=== PATIENT | female | born 1980 | race Caucasian/White ===

== ENCOUNTER 2017-02-12 20:44 | Observation (INO) | payer OTHER ==
[2017-02-12] MEDS ORDERED: Sodium Chloride 0.9% 1,000 ML IV STA (21:24)
[2017-02-12] MEDS ORDERED: HYDROmorphone 0.5 mg/0.5 ml ISec ONE (21:40)
[2017-02-12 21:41] LABS: BASO % 0.3 % (0.0-2.0); EOS # 0.3 K/uL (0.0-0.7); EOS % 3.3 % (0.0-4.0); HEMATOCRIT 35.8 % (34.0-47.0); LYMPH # 2.1 K/uL (1.0-4.3); LYMPH % 21.4 % (20.0-40.0); MEAN CELL VOLUME 88.7 fl (81.0-99.0); MEAN CORPUSCULAR HGB CONC 32.7 g/dL (33.0-37.0); MEAN PLATELET VOLUME 7.1 fl (7.2-11.7); MONO # 0.6 K/uL (0.0-0.8); NEUT # 6.8 K/uL (1.8-7.0); WHITE BLOOD COUNT 9.9 K/uL (4.8-10.8)
[2017-02-12 21:53] LABS: ALB/GLOB RATIO 1.4 (1.0-2.1); ALKALINE PHOSPHATASE 56 U/L (38-126); ALT/SGPT 29 U/L (9-52); AST/SGOT 30 U/L (14-36); BILIRUBIN,TOTAL 0.4 mg/dl (0.2-1.3); BLOOD UREA NITROGEN 14 mg/dl (7-17); CALCIUM 8.9 mg/dL (8.4-10.2); CARBON DIOXIDE 21 mmol/L (22-30); CHLORIDE 105 mmol/L (98-107); GFR AFRICAN-AMERICAN > 60; GLUCOSE,RANDOM 123 mg/dL (65-105); POTASSIUM 3.9 MMOL/L (3.6-5.0); SODIUM 138 mmol/l (132-148); TOTAL PROTEIN 8.2 G/DL (6.3-8.2)
--- NOTE | 2017-02-12 21:59 | ED PDOC ---
HPI: Female Pain Time Seen by Provider: 02/12/17 21:08 Chief Complaint (Nursing): Chest Pain Chief Complaint (Provider): Pelvic Pain History Per: Patient History/Exam Limitations: no limitations Onset/Duration Of Symptoms: Hrs (x12) Current Symptoms Are (Timing): Still Present Additional Complaint(s): Josefa Fernandes is a 36 year old female that presents to the ED with a chief complaint of pelvic pain that began suddenly this morning. Patient reports that her pain began while having intercourse, and describes it as a "stitch feeling" in her abdomen. She reports that the pain is worse when she is lying down flat, or when she is using her abdominal muscles when attempting to get up to a seated position after lying down. Patient states that her pain had been getting progressively worse throughout the day, and that just prior to arrival to ED she was getting up from her couch when the pain became so severe it radiated all the way up to her chest with associated shortness of breath. She denies any nausea, vomiting, diarrhea, bleeding, or urinary symptoms. Of Note: Patient had an egg retrieval procedure with Dr. Franco in [facility] five days ago. Both on the day of her procedure and the day after, she states that she had some pelvic cramping, but that all of it resolved. Past Medical History Reviewed: Historical Data, Nursing Documentation, Vital Signs Vital Signs: Last Vital Signs Temp 97.3 F L 02/12/17 20:55 Pulse 74 02/12/17 20:55 Resp 20 02/12/17 20:55 BP 118/70 02/12/17 20:55 Pulse Ox 98 02/12/17 20:55 - Medical History PMH: No Chronic Diseases - Surgical History Other surgeries: Ovarian cyst surgery - Family History Family History: States: No Known Family Hx - Social History Current smoker - smoking cessation education provided: No - Home Medications Home Medications: Ambulatory Orders Medication Instructions Recorded Vit Calc,Iron,Folic 1 tab PO DAILY 02/12/17 [ Vitamins] - Allergies Allergies/Adverse Reactions: Allergies Allergy/AdvReac Type Severity Reaction Status Date / Time No Known Allergies Allergy Verified 02/12/17 20:50 Review of Systems ROS Statement: Except As Marked, All Systems Reviewed And Found Negative (and as per HPI) Cardiovascular: Positive for: Chest Pain Respiratory: Positive for: Shortness of Breath Gastrointestinal: Negative for: Nausea, Vomiting, Diarrhea Genitourinary Female: Positive for: Pelvic Pain. Negative for: Dysuria, Frequency, Hematuria, Vaginal Discharge, Vaginal Bleeding Physical Exam - Reviewed Nursing Documentation Reviewed: Yes Vital Signs Reviewed: Yes - Physical Exam Appears: Positive for: Non-toxic, In Acute Distress Head Exam: Positive for: ATRAUMATIC, NORMOCEPHALIC Skin: Positive for: Warm, Dry Eye Exam: Positive for: EOMI, PERRL ENT: Negative for: Pharyngeal Erythema, Tonsillar Exudate Neck: Positive for: Painless ROM, Supple Cardiovascular/Chest: Positive for: Regular Rate, Rhythm, Chest Non Tender. Negative for: Murmur Respiratory: Positive for: Normal Breath Sounds. Negative for: Wheezing Gastrointestinal/Abdominal: Positive for: Soft, Tenderness, Guarding. Negative for: Mass, Distended, Rebound Back: Positive for: Normal Inspection. Negative for: Decreased ROM Extremity: Positive for: Normal ROM. Negative for: Deformity Lymphatic: Negative for: Adenopathy Neurologic/Psych: Positive for: Alert, Mood/Affect (anxious affect). Negative for: Motor/Sensory Deficits - Laboratory Results Result Diagrams: 02/12/17 21:30 02/12/17 21:30 - ECG O2 Sat by Pulse Oximetry: 98 (RA) Pulse Ox Interpretation: Normal Medical Decision Making Medical Decision Making: Impression: Pelvic Pain, ddx include Ruptured Ovarian Cyst vs. Hemorrhagic Cyst vs. Torsion vs. Abdominal Wall Strain Plan: * US Transvaginal * CBC * CMP * PTT * PT * Type and Screen * NaCl 1000 mLs at 1000 mLs/hr * Dilaudid 0.5 mg IV * Reevaluation Pt decline pain medication EXAM: US Pelvis, Transvaginal CLINICAL HISTORY: 36 years old, female; Pain; Pelvic pain TECHNIQUE: Real-time transvaginal pelvic ultrasound (complete) with image documentation. Transvaginal imaging was used for better evaluation of the endometrium and adnexa. COMPARISON: No relevant prior studies available. FINDINGS: Uterus/cervix: No myometrial mass. Endometrium: 1.5 cm in thickness. Right ovary: 6.9 x 4.4 x 5.6 cm in size. 3.4 x 2.4 x 3.4 cm hypoechoic lesion with internal echoes. Normal flow. Left ovary: 4.3 x 2.8 x 4.3 cm in size. 1.7 x 1.0 x 1.7 cm hypoechoic lesion with internal echoes. 1.7 x 1.3 x 1.7 cm hypoechoic lesion with internal echoes. Normal flow. Free fluid: Small to moderate complex free fluid about RIGHT adnexal region. IMPRESSION: 1. Probable complex/hemorrhagic RIGHT ovarian cyst. Recommend sonographic followup in 6 weeks to ensure resolution and exclude other etiologies. 2. Probable complex/hemorrhagic LEFT ovarian cysts/follicles. Recommend sonographic followup in 6 weeks to ensure resolution and exclude other etiologies. 3. Complex free fluid, likely hemorrhage. Thank you for allowing us to participate in the care of your patient. Dictated and Authenticated by: Judd Peralta MD 02/12/2017 11:06 PM Eastern Time ([place] & [place]) Scribe Attestation: Documented by Joyce Centeno, acting as a scribe for Tara Valero MD. Provider Scribe Attestation: All medical record entries made by the Scribe were at my direction and personally dictated by me. I have reviewed the chart and agree that the record accurately reflects my personal performance of the history, physical exam, medical decision making, and the department course for this patient. I have also personally directed, reviewed, and agree with the discharge instructions and disposition. Disposition - Clinical Impression Clinical Impression: Ovarian cyst rupture Discussed With : Lars Mckeon Doctor Will See Patient In The: ED Counseled Patient/Family Regarding: Studies Performed, Diagnosis - Disposition Disposition Time: 22:30 Condition: SERIOUS Forms: [facility] (Albanian) - Pt Status Changed To: Hospital Disposition Of: Observation - POA Present On Arrival: None
[2017-02-12 22:09] LABS: PARTIAL THROMBOPLASTIN TIME 30.8 Seconds (25.6-37.1)
[2017-02-13] MEDS ORDERED: Oxycodone/Acetaminophen 5/325 mg Tab ONE (00:10)
[2017-02-13] MEDS: Oxycodone/Acetaminophen 5/325 mg Tab PO PRN ×2 (00:11→10:58)
--- NOTE | 2017-02-13 00:31 | CP.PCM.CON ---
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 Pt states that during intercourse this morning, she felt discomfort that prompted her to stop and shortly after she began having a mild abdominal pain that lasted all day,3/10 in intensity. At 8pm, she suddenly felt 10/10 abdominal pain associated with SOB that occurred while lying supine and limited her from sitting upright. Currently pt denies any pain but is afraid to move so as to not exacerbate it. Denies n/v/d, vaginal bleeding/discharge, fever , chills, chest pain. Pt had a retrieval procedure 5 days ago. Reports that shortly after the procedure, she did have mild abdominal cramping that resolved the next day. Denies any procedural complications. Review of Systems - Constitutional Constitutional: absent: Fever, Headache - Cardiovascular Cardiovascular: absent: Chest Pain - Respiratory Respiratory: Dyspnea - Gastrointestinal Gastrointestinal: Abdominal Pain. absent: Diarrhea, Nausea - Genitourinary Genitourinary: Dysuria (Pt has had dysuria, recently treated for UTI, completed course of ABX) - Reproductive: Female Reproductive:Female: absent: Abnormal Vaginal Bleeding, Vaginal Discharge Past Patient History - Past Social History Smoking Status: Never Smoked - GENITOURINARY/GYNECOLOGICAL Hx Reproductive Disorders: Yes (Premature Ovarian Failure) Hx Urinary Tract Infection: Yes (Completed course of ABX 1 week ago) - PSYCHIATRIC Hx Substance Use: No - SURGICAL HISTORY Hx Surgeries: Yes (Cystectomy (June 2016)) Other/Comment: ovarian cyst removal (left) - ANESTHESIA Hx Anesthesia: Yes Hx Anesthesia Reactions: No Meds Allergies/Adverse Reactions: Allergies Allergy/AdvReac Type Severity Reaction Status Date / Time No Known Allergies Allergy Verified 02/12/17 20:50 - Medications Medications: Current Medications Oxycodone/Acetaminophen (Percocet 5/325 Mg Tab) 1 tab PO STAT PRN PRN Reason: Pain, severe (8-10) Stop: 02/15/17 23:54 Last Admin: 02/13/17 00:11 Dose: 1 tab Physical Exam - Constitutional Appears: Well Additional comments: Pt seen lying in bed very still, mildly uncomfortable. NAD at the moment - Eye Exam Eye Exam: Normal appearance - GI/Abdominal Exam GI & Abdominal Exam: Soft, Tenderness. absent: Distended, Guarding, Mass, Rebound, Rigid Additional comments: Diffusely tender to palpation. - Psychiatric Exam Psychiatric exam: Anxious Results - Vital Signs Recent Vital Signs: Last Vital Signs Temp 97.3 F L 02/12/17 20:55 Pulse 75 02/13/17 00:20 Resp 18 02/13/17 00:20 BP 110/65 02/13/17 00:20 Pulse Ox 98 02/13/17 00:10 - Labs Result Diagrams: 02/12/17 21:30 02/12/17 21:30 Labs: Laboratory Results - last 24 hr 02/12/17 02/12/17 02/12/17 21:30 21:30 21:30 WBC 9.9 RBC 4.03 Hgb 11.7 L Hct 35.8 MCV 88.7 MCH 29.0 MCHC 32.7 L RDW 14.0 Plt Count 258 MPV 7.1 L Neut % (Auto) 69.0 Lymph % (Auto) 21.4 [place] % (Auto) 6.0 Eos % (Auto) 3.3 Baso % (Auto) 0.3 Neut # 6.8 Lymph # 2.1 [place] # 0.6 Eos # 0.3 Baso # 0.0 PT 12.0 INR 1.1 APTT 30.8 Sodium 138 Potassium 3.9 Chloride 105 Carbon Dioxide 21 L Anion Gap 16 BUN 14 Creatinine 0.5 L Est GFR ( Amer) > 60 Est GFR (Non-Af Amer) > 60 Random Glucose 123 H Calcium 8.9 Total Bilirubin 0.4 AST 30 ALT 29 Alkaline Phosphatase 56 Total Protein 8.2 Albumin 4.7 Globulin 3.5 Albumin/Globulin Ratio 1.4 Assessment & Plan - Assessment and Plan (Free Text) Assessment: 36 y/o female with hx of Premature Ovarian Failure s/p Egg Retrieval Procedure 5 days ago presents to ED with complaints of acute abdominal and pelvic pain x 1day. Vital signs wnl. H/H stable. Bun/Crea wnl. Transvaginal U/S completed Plan: #Acute Abdominal Pain -Given pt's recent procedure, will need to rule out an acute GI/ bleed. Other etiologies include benign fluid accumulation from retrieval procedure vs pelvic infection vs medication side effect (Ovarian Hyperstimulation Syndrome producing fluid in abdomen) -Monitor patient overnight -Pain control, Percocet 1tab PO prn -Assess H/H in the am -Assess Chem panel in the am -F/U Urinalysis -F/U Transvaginal U/S report
[2017-02-13 00:51] LABS: RBC URINE 2 /hpf (0-3); URINE BACTERIA RARE (<OCC); URINE BILIRUBIN NEGATIVE (NEGATIVE); URINE BLOOD NEGATIVE (NEGATIVE); URINE COLOR YELLOW (YELLOW); URINE GLUCOSE (UA) NEG (Normal); URINE KETONE NEGATIVE (NEGATIVE); URINE LEUKOCYTE ESTERASE NEG Leu/uL (Negative); URINE PROTEIN NEGATIVE (NEGATIVE); URINE UROBILINOGEN 0.2-1.0 mg/dL (0.2-1.0); WBC URINE < 1 /hpf (0-5)
[2017-02-13 06:57] LABS: HEMATOCRIT 31.5 % (34.0-47.0); MEAN CELL VOLUME 87.7 fl (81.0-99.0); MEAN CORPUSCULAR HEMOGLOBIN 29.8 pg (27.0-31.0); RED CELL DISTRIBUTION WIDTH 14.1 % (11.5-14.5); WHITE BLOOD COUNT 7.3 K/uL (4.8-10.8)
[2017-02-13 07:48] LABS: ALB/GLOB RATIO 1.4 (1.0-2.1); ALKALINE PHOSPHATASE 46 U/L (38-126); ALT/SGPT 24 U/L (9-52); AST/SGOT 39 U/L (14-36); BILIRUBIN,TOTAL 0.5 mg/dl (0.2-1.3); BLOOD UREA NITROGEN 10 mg/dl (7-17); CALCIUM 8.3 mg/dL (8.4-10.2); CARBON DIOXIDE 25 mmol/L (22-30); CHLORIDE 107 mmol/L (98-107); GFR AFRICAN-AMERICAN > 60; GLUCOSE,RANDOM 92 mg/dL (65-105); SODIUM 142 mmol/l (132-148); TOTAL PROTEIN 7.1 G/DL (6.3-8.2)
[2017-02-13 08:36] VITALS: BP 98/60; PULSE 71; RESP 20; TEMP 97.9; O2SAT 100
--- NOTE | 2017-02-13 09:24 | US ---
HISTORY: pelvic pain COMPARISON: None available. TECHNIQUE: Transvaginal pelvic ultrasound was performed with longitudinal and transverse images submitted for interpretation. FINDINGS: UTERUS: Measures 8.2 x 3.7 x 4.7 cm. Uterus appears anteverted and is mildly enlarged with the patient reporting recent egg retrieval some 6 days previously. No fibroid or other mass lesion seen. ENDOMETRIUM: Measures 15.3 mm in diameter. Endometrium, though prominent, appears homogeneous in overall echogenicity and its prominence is of timing of recent egg retrieval. Clinically correlate further. No fluid collection identified in the endometrial cavity. CERVIX: No cervical abnormality identified. RIGHT OVARY: Measures 6.4 x 4.4 x 5.6 cm cm. The right ovary is enlarged and appears heterogeneous in echotexture including an inferior hypoechoic structure measuring 3.4 x 2.4 x 3.4 cm with limited peripheral color Doppler blood flow proper reflecting complex cyst with potential internal nodularity. This may reflect hemorrhage within a complex cyst normal arterial and venous blood flow seen within this ovary. LEFT OVARY: Measures 4.3 x 2.8 x 4.3 cm. Small complex cyst measuring 1.7 cm identified at the left ovary potentially reflecting a crenated follicle with arterial blood flow identified internally on color Doppler ultrasonography. A few small echo lucencies may represent tiny developing follicles. FREE FLUID: Echogenic fluid is seen in the endometrial cavity potentially reflecting hemoperitoneum. Differential diagnosis would be peritoneal abscess though this is not favored. OTHER FINDINGS: None. IMPRESSION: A mildly enlarged uterus identified with an endometrium measuring 15.3 mm without fluid collection or focal endometrial mass grossly evident. A small complex cyst is seen at the left ovary with left ovary upper limits normal size. A moderate volume of mildly echogenic fluid is seen in the cul-de-sac potentially reflecting hemoperitoneum or potential abscess. Follow-up CT is available. Nevertheless, follow-up transvaginal pelvic ultrasound ultrasound recommended in 6-8 weeks to evaluate for resolution of current bilateral adnexal findings. Concordant preliminary report from [facility], 02/12/2017.
--- NOTE | 2017-02-13 12:59 | CP.PCM.PN ---
Subjective - Date & Time of Evaluation Date of Evaluation: 02/13/17 Time of Evaluation: 12:55 - Subjective Subjective: Patient is a 36 yo female s/p egg retrieval with abdominal pain secondary to hemoperitoneum. Patient says pain has improved overnight, no N/V, tolerating PO diet, ambulating/voiding well, no vaginal bleeding, no CP, no SOB. Repeat HGb is 10.7, shows patient's hemoglobin is stable. Objective - Vital Signs/Intake and Output Vital Signs (last 24 hours): Temp Pulse Resp BP Pulse Ox 97.9 F 71 20 98/60 L 100 02/13/17 08:36 02/13/17 08:36 02/13/17 08:36 02/13/17 08:36 02/13/17 08:36 - Medications Medications: Current Medications Oxycodone/Acetaminophen (Percocet 5/325 Mg Tab) 1 tab PO STAT PRN PRN Reason: Pain, severe (8-10) Stop: 02/15/17 23:54 Last Admin: 02/13/17 10:58 Dose: 1 tab - Labs Labs: 02/13/17 05:45 02/13/17 05:45 PT 12.0 Seconds (9.8-13.1) 02/12/17 21:30 INR 1.1 (0.9-1.2) 02/12/17 21:30 APTT 30.8 Seconds (25.6-37.1) 02/12/17 21:30 Assessment and Plan - Assessment and Plan (Free Text) Assessment: A/P 1. Patient is stable for discharge. Discussed with patient to continue moderate activity, don not recommend strict bedrest. Remaining hemoperitoneum will continue to be absorbed. 2. Scripts for Motrin and Percocet given to patient 3. F/U with [facility] physicians
== END 2017-02-13 13:34 | disposition home or self-care (01) ==
LOC: H.ER 20:44 → H.ERHOLD 23:54 → H.MEDSURG1 02-13 00:48
PROVIDERS: ADMIT Obstetrics & Gynecology; ATTEND Obstetrics & Gynecology
DX: K66.1 Hemoperitoneum (principal); N83.202 Unspecified ovarian cyst, left side; E28.39 Other primary ovarian failure; Z87.440 Personal history of urinary (tract) infections
CPT/HCPCS: 36415; 76830; 80053; 81003; 81025; 85025; 85027; 85610; 85730; 96360; 99285; G0378; J7040